=== PATIENT | female | born 2000 | race Caucasian/White ===

== ENCOUNTER 2023-12-11 13:28 | Emergency (ER) | payer OTHER, MEDICAID, SELFPAY ==
[2023-12-11 13:37] VITALS: BP 126/75; PULSE 105; RESP 17; TEMP 36.3; O2SAT 97; BMI 28.7
--- NOTE | 2023-12-11 16:08 | ED_ITS ---
HPI - Dental/Oral <Hector Gonzalez PA-C - Last Filed: 12/11/23 16:12> General Chief complaint: Dental/Oral Stated complaint: tooth pain, headache Time Seen by Provider: 12/11/23 14:03 Source: patient Mode of arrival: Ambulatory History of Present Illness HPI Narrative: 23-year-old female presents to the ED with 2 months of worsening dental pain. Patient states that 1 of her fillings fell off from her right upper wisdom tooth, following which the pain has worsened over the last 2 months. Patient has a dentist appointment for 12/13/2023, however patient states that her pain has been unrelieved by Tylenol and ibuprofen. Patient also states that her gum around that tooth feels very inflamed, she has having a lot of food stuck there as well. Patient denies fever, chills. Patient does endorse sensitivity to c old. Related Data Previous Rx's Medication Instructions Recorded amoxicillin 875 mg-potassium 1 tab PO Q12H 10 days #20 tabs 12/11/23 clavulanate 125 mg tablet oxycodone-acetaminophen 5 mg-325 1 tab PO Q8H PRN pain 3 days #9 12/11/23 mg tablet (Percocet) tabs Allergies Allergy/AdvReac Type Severity Reaction Status Date / Time No Known Drug Allergies Allergy Verified 12/11/23 13:41 Review of Systems <Hector Gonzalez PA-C - Last Filed: 12/11/23 16:12> Constitutional Constitutional: Denies chills, Denies fatigue, Denies fever(s), Denies frequent falls, Denies lethargy and Denies weakness Eyes Eyes: Denies change in vision, Denies eye discharge, Denies irritation and Denies loss of vision ENT Ears, Nose, Mouth, and Throat: Denies change in voice, Reports dental pain, Denies dizziness, Denies neck pain, Denies sore throat and Denies throat swelling Cardiovascular Cardiovascular: Denies chest pain, Denies irregular heart rhythm, Denies lightheadedness, Denies palpitations, Denies dyspnea, Denies dyspnea on exertion and Denies orthopnea Respiratory Respiratory: Denies cough, Denies dyspnea, Denies dyspnea on exertion and Denies wheezing Gastrointestinal Gastrointestinal: Denies abdominal pain, Denies change in bowel habits, Denies diarrhea, Denies nausea and Denies vomiting Musculoskeletal Musculoskeletal: Denies neck pain and Denies numbness Integumentary/Breasts Skin/Breast: Denies pruritus, Denies erythema, Denies rash and Denies wounds Neurologic Neurologic: Denies behavioral changes, Denies confusion, Denies dizziness, Denies frequent falls, Denies loss of vision, Denies numbness and Denies weakness Psychiatric Psychiatric: Denies anxiety, Denies behavioral changes, Denies confusion, Denies depression, Denies homicidal ideation and Denies suicidal ideation Endocrine Endocrine: Denies fatigue, Denies flushing and Denies palpitations Hematologic/Lymphatic Hematologic/Lymphatic: Denies easy bruising Allergic/Immunologic Allergic/Immunologic: Denies urticaria, Denies throat swelling and Denies wheezing Patient History <Hector Gonzalez PA-C - Last Filed: 12/11/23 16:12> Social History Smoking Status: Never smoker Smoking Status: Never smoker alcohol intake frequency: other Substance Use Type: does not use Exam <Hector Gonzalez PA-C - Last Filed: 12/11/23 16:12> Narrative Exam Narrative: Const General:?cooperative, healthy appearing and comfortable [facility] Head:?normal to inspection Ears:?hearing grossly normal bilaterally Nose:?external nose normal Face and sinus:?normal facial exam and sinuses nontender Mouth:?oral mucosae normal; top left wisdom tooth without dental filling, with gums tender to palpation; no periapical abscess noted on exam Throat:?posterior oropharynx normal Eyes General:?appearance normal, both eyes and all related structures Neck Neck:?normal visual inspection and no lymphadenopathy noted Resp Effort & Inspection:?normal respiratory effort Auscultation:?clear to auscultation bilaterally Cardio Rate:?regular rate Rhythm:?regular rhythm Neuro General:?patient alert, patient awake and patient oriented x3 Initial Vital Signs Initial Vital Signs: Vital Signs Temperature 97.3 F L 12/11/23 13:37 Pulse Rate 105 H 12/11/23 13:37 Respiratory Rate 17 12/11/23 13:37 Blood Pressure 126/75 12/11/23 13:37 Pulse Oximetry 97 12/11/23 13:37 Oxygen Delivery Method Room Air 12/11/23 13:37 <Kathe Guevara DO - Last Filed: 12/12/23 08:38> Initial Vital Signs Initial Vital Signs: Vital Signs Temperature 97.3 F L 12/11/23 13:37 Pulse Rate 105 H 12/11/23 13:37 Respiratory Rate 17 12/11/23 13:37 Blood Pressure 126/75 12/11/23 13:37 Pulse Oximetry 97 12/11/23 13:37 Oxygen Delivery Method Room Air 12/11/23 13:37 Course <Hector Gonzalez PA-C - Last Filed: 12/11/23 16:12> Vital Signs Vital signs: Vital Signs - 8 hr 12/11/23 13:37 Temperature 97.3 F L Pulse Rate 105 H Respiratory Rate 17 Blood Pressure 126/75 Pulse Oximetry 97 Oxygen Delivery Method Room Air <Kathe Guevara DO - Last Filed: 12/12/23 08:38> Vital Signs Vital signs: Vital Signs - 8 hr 12/11/23 13:37 Temperature 97.3 F L Pulse Rate 105 H Respiratory Rate 17 Blood Pressure 126/75 Pulse Oximetry 97 Oxygen Delivery Method Room Air MDM - Dental/Oral <Hector Gonzalez PA-C - Last Filed: 12/11/23 16:12> MDM Narrative Medical decision making narrative: 23-year-old female presents to the ED with 2 months of worsening dental pain. Concern for dental caries versus odontogenic infection versus other. Prescribed antibiotics. Prescribed pain control. Patient agrees to follow-up with the dentist as scheduled for the end of this week. ED return precautions discussed with patient. Patient verbalized understanding. Medical records reviewed: Yes Discharge Plan Departure Patient Disposition: Home Clinical Impression: Toothache Instructions: DI for Dental Pain Activity Restrictions/Additional Instructions: You were evaluated in the ED today for a toothache. It appears that you might have a filling that has fallen off versus a dental infection. You are being prescribed antibiotics and pain control. Please keep your appointment with the dentist for the end of this week. Return to the ED if you have worsening symptoms, persistent vomiting, fever, chills. Prescriptions: New oxycodone-acetaminophen [Percocet] 5-325 mg tablet 1 tab PO Q8H PRN (Reason: pain) 3 Days Qty: 9 0RF amoxicillin-pot clavulanate 875-125 mg tablet 1 tab PO Q12H 10 Days Qty: 20 0RF Referrals: Miscellaneous,Doctor, [Primary Care Provider] - Stand Alone Forms: Patient Portal/API ED Sign-out <Kathe Guevara DO - Last Filed: 12/12/23 08:38> Cosign ED Attending Coslisa Attestation: I was immediately available in the department for consultation.
== END 2023-12-11 15:02 | disposition home or self-care (01) ==
PROVIDERS: Emergency Provider Student in an Organized Health Care Education/Training Program
DX: K08.89 Other specified disorders of teeth and supporting structures (principal)
CPT/HCPCS: 99281; 99283